=== PATIENT | male | born 1960 | race Caucasian/White ===

== ENCOUNTER → 2016-10-15 | Outpatient (CLI) | payer OTHER ==
--- NOTE | 2016-10-16 08:46 | ECHOF ---
Referral Reason:R06.02 Dyspnea MEASUREMENTS -------- HEIGHT: 172.7 cm WEIGHT: 81.2 kg BP: 136/81 RVIDd: 2.8 cm (< 3.3) IVSd: 0.9 cm (0.6 - 1.1) LVIDd: 5.0 cm (3.9 - 5.3) LVPWd: 0.9 cm (0.6 - 1.1) IVSs: 1.2 cm LVIDs: 3.8 cm LVPWs: 1.2 cm LAESV Index (A-L): 7.30 ml/m Ao Diam: 3.2 cm (2.0 - 3.7) AV Cusp: 1.9 cm (1.5 - 2.6) LA Diam: 3.4 cm (2.7 - 3.8) MV EXCURSION: 13.362 mm (> 18.000) MV EF SLOPE: 55 mm/s (70 - 150) EPSS: 0.4 cm MV E Teddy: 0.64 m/s MV DecT: 347 ms MV A Teddy: 0.93 m/s MV E/A Ratio: 0.68 RAP: 5.00 mmHg RVSP: 23.95 mmHg FINDINGS -------- Sinus rhythm. This was a technically adequate study. The left ventricular size is normal. Left ventricular wall thickness is normal. Overall left ventricular systolic function is normal with, an EF between 55 - 60 %. The right ventricle is normal in size and function. Normal LA size by volume 22+/-6 ml/m2. The right atrium is normal in size. Aortic valve is trileaflet and is mildly thickened. There is no evidence of aortic regurgitation. There is no evidence of aortic stenosis. The mitral valve leaflets are mildly thickened. There is trace mitral regurgitation. Trace tricuspid regurgitation present. Right ventricular systolic pressure is normal at < 35 mmHg. There is no evidence of pulmonary hypertension. The pulmonic valve was not well visualized. The aortic root size is normal. Normal inferior vena cava with normal inspiratory collapse consistent with estimated right atrial pressure of 5 mmHg. The pericardium is normal. There is no pericardial effusion. CONCLUSIONS -------- 1. Sinus rhythm. 2. Right ventricular systolic pressure is normal at < 35 mmHg. 3. There is no evidence of pulmonary hypertension. 4. The pulmonic valve was not well visualized. 5. The aortic root size is normal. 6. There is no pericardial effusion. 7. This was a technically adequate study. 8. The left ventricular size is normal. 9. Overall left ventricular systolic function is normal with, an EF between 55 - 60 %. 10. Normal LA size by volume 22+/-6 ml/m2. 11. Aortic valve is trileaflet and is mildly thickened. 12. The mitral valve leaflets are mildly thickened. 13. There is trace mitral regurgitation. 14. Trace tricuspid regurgitation present. FLARE MAN: Abdon Lenz RDCS
== END | disposition home or self-care (01) ==
LOC: RADECHMAIN 15:23
PROVIDERS: ATTEND Family Medicine
DX: I08.3 Combined rheumatic disorders of mitral, aortic and tricuspid valves (principal)
CPT/HCPCS: 93306

== ENCOUNTER → 2016-10-31 | Outpatient (CLI) | payer OTHER ==
--- NOTE | 2016-10-31 07:59 | CT ---
EXAMINATION TYPE: CT chest w con DATE OF EXAM: 10/31/2016 COMPARISON: NONE HISTORY: SOB CT DLP: 650 mGycm Automated exposure control for dose reduction was used. CONTRAST: CT scan of the chest is performed with IV Contrast, patient injected with 100 mL of Omnipaque 300. FINDINGS: LUNGS: Subsegmental consolidation at both lung bases. Correlate for atelectasis or infiltrate. Vague groundglass densities involving the right apex likely postinflammatory. No pleural effusion. No pneum othorax. Reduced inspiration present. No sizable pulmonary nodule. MEDIASTINUM: There are no greater than 1 cm hilar or mediastinal lymph nodes. No pericardial effusi on is seen. OTHER: Accessory spleen noted. There is a bovine configuration of the aortic arch. IMPRESSION: 1. Subsegmental basilar consolidation. There appears to be elevation of the hemidiaphragms and reduce d inspiration, therefore, atelectasis favored over pneumonia but correlate clinically to exclude pneu monia.
== END ==
LOC: RADCTMAIN 06:59
PROVIDERS: ATTEND Internal Medicine Critical Care Medicine
DX: J18.1 Lobar pneumonia, unspecified organism (principal)
CPT/HCPCS: 71260; Q9967

== ENCOUNTER 2016-11-13 09:20 | Day surgery (SDC) | payer OTHER ==
[2016-11-11 14:17] VITALS: BMI 27.3
[~2016-11-13 09:20] MED LIST: ALBUTEROL NEB (CONC) 2.5 MG/0.5 ML INHALATION ONE; ATROPINE SULFATE 0.4 MG/ML 1 ML VIAL IM ONE; LACTATED RINGERS 1,000 ML IV ONE; LACTATED RINGERS 1,000 ML IV SCH; LIDOCAINE 2% (PF) 20 MG/ML 10ML INHALATION ONE; Pre Op ABX Message 1 EACH MISC MISCELLANE ONE
[2016-11-13 09:38] VITALS: TEMP 98.4
[2016-11-13] MEDS ORDERED: GLYCOPYRROLATE 0.2 MG/ML 2 ML VIAL ONE (10:49)
[2016-11-13] MEDS ORDERED: KETAMINE 10 MG/ML 20 ML VIAL ONE (10:49)
[2016-11-13] MEDS ORDERED: PROPOFOL 10 MG/ML 20 ML VIAL IV ONE (10:49)
[2016-11-13] MEDS ORDERED: LIDOCAINE 2% INJ 20 MG/ML INTRATRACH ONE (11:12)
--- NOTE | 2016-11-13 11:34 | FL ---
EXAMINATION TYPE: FL bronchoscopy DATE OF EXAM: 11/13/2016 COMPARISON: NONE HISTORY: Bronchoscopy Fluoroscopy support supplied to the referring clinician. See dictated report from pulmonary, 1 minut e 18 seconds fluoroscopy time supplied, intraoperative C-arm image documents the procedure
[2016-11-13 11:55] VITALS: RESP 20
--- NOTE | 2016-11-13 12:10 | XR ---
EXAMINATION TYPE: XR chest 1V portable DATE OF EXAM: 11/13/2016 COMPARISON: 10/27/2016 HISTORY: Post bronchoscopy. TECHNIQUE: Single frontal view of the chest is obtained. FINDINGS: Left basilar opacity obscures the left costophrenic angle and left hemidiaphragm. Subsegme ntal linear platelike right basilar atelectasis is seen. No postprocedural pneumothorax is identified . Cardia mediastinal silhouette is partially visualized but appears nonenlarged. Osseous structures a ppear intact. IMPRESSION: 1. No evidence of postprocedural pneumothorax. 2. Left basilar opacity favored to represent a small left pleural effusion and subsegmental atelectas is but could represent developing pneumonia or postbiopsy hemorrhage. 3. Subsegmental linear right basilar atelectasis.
[2016-11-13 12:37] VITALS: BP 128/78; PULSE 80
--- NOTE | 2016-11-13 13:23 | PCN ---
PROCEDURE NOTE PROCEDURE: Bronchoscopy, airway examination, therapeutic lavage, BAL, brushes and biopsies to transbronchial left lower lobe. PREOP DIAGNOSIS: Rule out bronchiolitis obliterans organizing pneumonia. POSTOP DIAGNOSIS: Rule out bronchiolitis obliterans organizing pneumonia. PROCEDURE: [employer] provided unconscious and general anesthesia. There was informed consent and universal timeout. The operators were Dr. Davey and Dr. Elliott. The patient's procedure took place in room #1. After the patient was adequately sedated and being fully monitored. The bronchoscope was inserted through the right nostril. It passed through the right nasopharynx into the oropharynx. The hypopharynx was identified and topicalized. The hypopharyngeal structures including anterior commissure, true cords, false cords, arytenoids, piriform sinuses, right and left vallecula all appeared normal. After topicalization, the bronchoscope was pushed through the glottic opening into the trachea. Trachea was normal. Trachea paula was sharp. Right and left mainstem were topicalized. The right upper lobe and its 3 cm segments, right middle lobe and its 2 segments, right lower lobe and its 5 segments, the left upper lobe proper in its 2 segments, the lingula and its 2 segments and left lower lobe and its 4 segment all appeared relatively normal. There may be some very mild bronchitis. Anyway, then the bronchoscope was positioned into the left lower lobe. Under fluoroscopic guidance, we did brush just to the left lower lobe. Next, we did about 8 to 9 transbronchial biopsies in the left lower lobe. Finally, we did a BAL in the lingula. The patient tolerated the procedure well. There was minimal bleeding. We scanned for pneumothorax after the procedure. There was none. A formal chest x-ray was ordered. There was no immediate complication. The patient tolerated the procedure well. Vital signs were stable throughout the procedure. MMODL / IJN: [id number] /
[2016-11-13 15:00] LABS: RBC, Body Fluid 205500 /uL
== END 2016-11-13 12:38 | disposition home or self-care (01) ==
LOC: ORWHC2ENDO 09:20
PROVIDERS: ATTEND Internal Medicine Critical Care Medicine
DX: J40 Bronchitis, not specified as acute or chronic (principal); R06.02 Shortness of breath; I10 Essential (primary) hypertension; E78.00 Pure hypercholesterolemia, unspecified; Z82.49 Family history of ischemic heart disease and other diseases of the circulatory system; Z79.51 Long term (current) use of inhaled steroids; Z79.52 Long term (current) use of systemic steroids; Z79.899 Other long term (current) drug therapy; Z88.0 Allergy status to penicillin
CPT/HCPCS: 94640; 87798 ×4; 87496; 87498; 87529 ×2; 88104; 88108; 88305; 89050; 87252; 87502 ×2; 87070; 87205; 87116; 87102; 87206; 71010; 31628; 31623; 31624; J2001 ×2; J2704

== ENCOUNTER → 2017-04-20 | Outpatient (CLI) | payer BC ==
[2017-04-20 08:59] LABS: Basophils # (A) 0.1 k/uL (0-0.2); Basophils % (A) 1 %; Eosinophils # (A) 0.1 k/uL (0-0.7); Eosinophils % (A) 1 %; HCT 47.1 % (39.0-53.0); HGB 15.6 gm/dL (13.0-17.5); Lymphocytes # (A) 2.8 k/uL (1.0-4.8); Lymphocytes % (A) 26 %; MCH 29.9 pg (25.0-35.0); MCHC 33.2 g/dL (31.0-37.0); MCV 90.2 fL (80.0-100.0); Mean Platelet Volume 7.6; Monocytes # (A) 0.8 k/uL (0-1.0); Monocytes % (A) 8 %; Neutrophils # (A) 6.4 k/uL (1.3-7.7); Neutrophils % (A) 61 %; Platelet Count 228 k/uL (150-450); RBC 5.22 m/uL (4.30-5.90); RDW 13.6 % (11.5-15.5); WBC 10.5 k/uL (3.8-10.6)
[2017-04-20 09:14] LABS: Anion Gap 10 mmol/L; Blood Urea Nitrogen 22 mg/dL (9-20); Carbon Dioxide 33 mmol/L (22-30); Chloride 97 mmol/L (98-107); INR 1.1 (<1.2); Prothrombin Time 10.3 sec (9.0-12.0); Sodium 140 mmol/L (137-145)
[2017-04-20 09:30] LABS: Partial Thromboplastin Time 20.9 sec (22.0-30.0)
[2017-04-20 09:36] LABS: Appearance,Urine Clear (Clear); Bilirubin,Urine Negative (Negative); Blood,Urine Negative (Negative); Color,Urine Yellow; Glucose,Urine (UA) Negative (Negative); Ketones,Urine Negative (Negative); Leukocyte Esterase,Urine Negative (Negative); Nitrite,Urine Negative (Negative); PH, Urine 5.5 (5.0-8.0); Protein,Urine Negative (Negative); Specific Gravity,Urine 1.017 (1.001-1.035); Urobilinogen,Urine <2.0 mg/dL (<2.0)
== END | disposition home or self-care (01) ==
LOC: LABPAT 08:06
PROVIDERS: ATTEND Surgery
DX: Z01.812 Encounter for preprocedural laboratory examination (principal); R91.8 Other nonspecific abnormal finding of lung field
CPT/HCPCS: 36415; 80051; 81003; 82565; 84520; 85025; 85610; 85730

== ENCOUNTER → 2017-04-20 | Outpatient (CLI) | payer BC | END | disposition home or self-care (01) | LOC: RADCTMAIN 07:36 | PROVIDERS: ATTEND Thoracic Surgery (Cardiothoracic Vascular Surgery) | DX: Z53.9 Procedure and treatment not carried out, unspecified reason (principal) ==

== ENCOUNTER 2017-04-23 06:08 | Inpatient (IN) | payer BC ==
[~2017-04-23 06:08] MED LIST changes: -ALBUTEROL NEB (CONC) 2.5 MG/0.5 ML INHALATION ONE; -ATROPINE SULFATE 0.4 MG/ML 1 ML VIAL IM ONE; +DEXAMETHASONE SOD PHOSPHATE 10 MG/ML 1 ML VIAL IV ONE; -LACTATED RINGERS 1,000 ML IV ONE; -LACTATED RINGERS 1,000 ML IV SCH; -LIDOCAINE 2% (PF) 20 MG/ML 10ML INHALATION ONE; +MORPHINE SULFATE 4 MG/ML SYRINGE IV PRN
[2017-04-23] MEDS: LACTATED RINGERS 1,000 ML IV SCH ×2 (06:52→07:41)
[2017-04-23 06:54] LABS: Glucose,Whole Blood 102 mg/dL (75-99)
[2017-04-23] MEDS: ONDANSETRON 4 MG/2 ML VIAL IVP ONE ×2 (06:59→09:44)
[2017-04-23] MEDS ORDERED: VANCOMYCIN 1,000 MG in SODIUM CHLORIDE 0.9% 250 ML IVPB STA (07:40)
[2017-04-23] MEDS ORDERED: PROPOFOL 10 MG/ML 20 ML VIAL IV ONE (07:45)
[2017-04-23] MEDS ORDERED: ROCURONIUM BROMIDE 10 MG/ML 10 ML VIAL IV ONE (07:45)
[2017-04-23] MEDS ORDERED: fentaNYL (PF) 50 MCG/ML 2 ML AMP ONE (07:45)
[2017-04-23] MEDS ORDERED: SUCCINYLCHOLINE CHLORIDE VIAL 200 MG/10 ML VIAL IV ONE (07:45)
[2017-04-23] MEDS ORDERED: NEOSTIGMINE 1 MG/ML 10 ML VIAL ONE (07:45)
[2017-04-23] MEDS ORDERED: GLYCOPYRROLATE 0.2 MG/ML 2 ML VIAL ONE (07:45)
[2017-04-23] MEDS ORDERED: PHENYLEPHRINE-0.9% NACL SYG 1 MG/10 ML SYRINGE ONE (07:45)
[2017-04-23] MEDS ORDERED: MIDAZOLAM 2 MG/2 ML VIAL ONE (07:45)
[2017-04-23] MEDS ORDERED: BUPIVACAINE (PF) 0.5% 30 ML VIAL SQ ONE ×2 (08:41)
[2017-04-23] MEDS ORDERED: MORPHINE SULFATE 4 MG/ML SYRINGE IVP ONE ×3 (10:03→11:36)
[2017-04-23] MEDS ORDERED: IPRATROPIUM-ALBUTEROL 3 ML NEB IH PRN (10:07)
[2017-04-23] MEDS ORDERED: ONDANSETRON 4 MG/2 ML VIAL IVP PRN (10:07)
[2017-04-23] MEDS ORDERED: BISACODYL 10 MG SUPP RECTAL PRN (10:07)
--- NOTE | 2017-04-23 10:19 | XR ---
EXAMINATION TYPE: XR chest 1V portable DATE OF EXAM: 04/23/2017 Comparison: 11/13/2016 Clinical History: 57-year-old male POST OP CHEST TUBE Findings: Very low lung volumes with crowded vascular markings and bibasilar densities. The elevated hemidiaphr agms obscure the heart margins. Heart may be enlarged. Diffuse interstitial prominence could represen t crowded vasculature. Difficult to exclude underlying effusions or consolidation at the lung bases. Apically directed left-sided chest tube is new. No appreciable pneumothorax. Impression: 1. New left-sided chest tube. No appreciable pneumothorax. 2. Severe hypoventilatory changes limiting evaluation. There could be underlying cardiomegaly, effusi ons, and basilar consolidation. Follow-up with better inspiration recommended.
[2017-04-23] MEDS: KETOROLAC 30 MG/ML 1 ML VIAL IVP SCH ×2 (10:32→17:14)
[2017-04-23] MEDS: DEXTROSE 5%-0.45% NACL 1,000 ML IV SCH (11:44)
--- NOTE | 2017-04-23 12:00 | OP ---
OPERATIVE REPORT DATE OF SURGERY: 04/23/2017 PREOPERATIVE DIAGNOSIS: Interstitial lung disease. POSTOPERATIVE DIAGNOSIS: Interstitial lung disease. PROCEDURE: Left upper lobe and left lower lobe VATS lung biopsy. SURGEON: Paul Rodriguez MD. SINGLE RESOURCE BOSS: SEBASTIAN Cortes. ANESTHESIA: General. SPECIMENS: 1. Left upper lobe wedge. 2. Left lower lobe wedge. ESTIMATED BLOOD LOSS: Minimal. COMPLICATIONS: None. INDICATION: The patient is a 57-year-old male who has been followed by Dr. Elliott for several months now secondary to shortness of breath. He has been treated both with antibiotics and steroids without response. Transbronchial biopsy was performed and revealed peribronchial inflammation. The patient remains significantly short of breath. It is difficult for him to lay flat. Now there is a question of bronchiolitis obliterans with organizing pneumonia. A thoracoscopic lung biopsy was therefore requested to confirm the diagnosis of BOOP or possibly establish a different diagnosis. The risks, benefits, and alternatives to this procedure including, but not limited to the risk of prolonged intubation and air leak were discussed with the patient. All his questions were answered. Consent was obtained. FINDINGS: Grossly, the lung appeared normal. There was no studding on the chest wall. There were no obvious masses or nodules within the lung parenchyma. There was no necrotic or cavitary lesions. PROCEDURE IN DETAIL: The patient was taken to the operating room and placed supine on the operating room table. A double-lumen endotracheal tube was placed by the anesthesia service. Its position was confirmed using a bronchoscope. The patient was then placed in the right lateral decubitus position with the left side up. Care was taken to pad all pressure points. The left chest and flank were then prepped and draped in the usual sterile fashion. With the left lung deflated, a small incision was made at the anterior axillary line at approximately the 7th intercostal space. Of note, the patient was able to ventilate and saturate well on one lung. Dissection was carried down through the soft tissue and the left pleural space was entered bluntly. The thoracoscope was introduced. Two additional ports were then placed under direct vision. Initial exploration revealed no obvious nodules or masses. There were no cavitary lesions or areas concerning for consolidation. The chest wall itself was free from masses or studding. There was no significant pleural effusion. A portion of the left upper lobe was wedged out using a stapling device. The staple line appeared to be intact after completion of this procedure. A second wedge was taken from the left lower lobe in a similar fashion using a stapling device. Again the staple line appeared to be intact without evidence of air leak. A straight 32-Indian chest tube was placed and directed toward the apex. The lung was then inflated under direct vision and appeared to fill the space nicely. Again, there was no obvious air leak. The chest tube was secured to the skin. The 3 incisions were then closed in layers. Sterile dressings were applied. The patient appeared to have tolerated the procedure well. He was extubated on the completion of the case and returned to the recovery room in stable condition. MMODL / IJN: [id number] / MTDD
[2017-04-23] MEDS: IPRATROPIUM-ALBUTEROL 3 ML NEB IH SCH ×3 (12:51→20:21)
[2017-04-23] MEDS ORDERED: predniSONE 20 MG TAB PO SCH (13:00)
[2017-04-23] MEDS: LISINOPRIL-HCTZ 20-25 MG 1 EACH TAB PO SCH (13:07)
[2017-04-23] MEDS: traMADol 50 MG TAB PO SCH ×3 (13:09→21:02)
[2017-04-23] MEDS: ATORVASTATIN 10 MG TAB PO SCH (13:09)
[2017-04-23] MEDS: predniSONE 10 MG TAB PO SCH (13:55)
[2017-04-23] MEDS: MORPHINE SULFATE 4 MG/ML SYRINGE IV PRN ×3 (15:04→22:39)
--- NOTE | 2017-04-23 15:04 | P.CNPUL ---
History of Present Illness Consult date: 04/23/17 Requesting physician: Paul Rodriguez Reason for consult: other (Status post VATS lung biopsy) Chief complaint: Shortness of breath History of present illness: This is a 57-year-old white male with history of chronic shortness of breath going back to October of 2016. His shortness of breath developed around the time he developed a strep throat, admitted to the hospital in [place], treated with antibiotics and diuretics, and eventually he was discharged home diagnosed according to him with streptococcal sepsis. Patient did not require any intubation or mechanical ventilation, but apparently he was quite ill at the time because of his strep throat infection. Since then the patient developed extreme shortness of breath, and has been doctoring with Dr. Elliott since 2016. Workup was done by Dr. Rajinder Elliott, revealed evidence of restrictive lung disease, and his FVC is in the range of 30%. Patient did not require any oxygen , he underwent a bronchoscopy and transbronchial biopsy which I reviewed and clearly was nondiagnostic. Apparently Dr. Elliott had a verbal report from the pathologist at the [facility] questioning a bronchiolitis obliterans with organizing pneumonia. Patient was tried on prednisone, but no relief whatsoever. Tried on bronchodilators again no relief. In spite of his shortness of breath, the patient did not require to be on home oxygen. His CT of the chest showed nonspecific findings hence the patient was advised to undergo thoracoscopic lung biopsy which was done today. Grossly his specimen was normal according to the surgeon, final pathology report is pending. Patient was transferred to a monitor bed on selective after his surgery today, and I was asked to see him on consultation. After reviewing the clinical history and reviewing his x-rays, CT of the chest, previous bronchoscopic findings, PFT, I felt strongly that this is more of a restrictive pathology most likely related to muscle weakness. Patient may eventually need workup for muscle weakness evaluation including a sniff test, and other blood testing looking into possibility of muscle weakness causing his symptoms of shortness of breath. Patient cannot lay flat, he cannot lay on the left side, and x-rays in the past have shown the left hemidiaphragm to be dismissed to be all was higher than the right hemidiaphragm. X-rays have also shown atelectatic changes at the bases bilaterally, and the chest x-ray this morning after his surgery is showing significant hypoventilatory status with atelectasis in the right lower lobe and left lower lobe. Hence I recommended an ABG, and I will give the patient a trial of BiPAP. Review of Systems 14 point review of systems were obtained, please refer to pertinent positives and negatives in HPI, patient denies any cough, no wheezing, he has shortness of breath which is relatively chronic, denies any headaches, no blurred vision, no diplopia, no neck pain, no cervical pathology, denies any nausea vomiting abdominal pain, no melena, no hematemesis, no symptoms of arthritis, no dysuria and no frequency no urgency. Past Medical History Past Medical History: Hyperlipidemia, Hypertension Additional Past Medical History / Comment(s): IN September,, WAS IN TH "UP" AT HIS CABIN AND GOT SICK WITH STREP THROAT AND HIGH FEVER (103), BECAME SEPTIC , THEN LUNG PROBLEMS. VERY SOB, CAN NOT LIE FLAT OR WALK VERY FAR. History of Any Multi-Drug Resistant Organisms: None Reported Past Surgical History: No Surgical Hx Reported Additional Past Surgical History / Comment(s): BRONCHOSCOPY, colonoscopy Past Anesthesia/Blood Transfusion Reactions: No Reported Reaction Additional Past Anesthesia/Blood Transfusion Reaction / Comment(s): HAS NEVER HAD GENERAL ANESTHESIA. Past Psychological History: No Psychological Hx Reported Smoking Status: Light tobacco smoker Past Alcohol Use History: Occasional Additional Past Alcohol Use History / Comment(s): chews tobacco- daily Past Drug Use History: None Reported - Past Family History Mother Family Medical History: No Reported History Medications and Allergies Home Medications Medication Instructions Recorded Confirmed Type Lisinopril-Hctz 20-25 mg 1 tab PO QAM 11/11/16 04/23/17 History [Zestoretic 20-25] Simvastatin [Zocor] 20 mg PO QAM 11/11/16 04/23/17 History Albuterol Inhaler [Ventolin Hfa 1 puff INHALATION RT-Q6H PRN 04/17/17 04/23/17 History Inhaler] Naproxen Sod/Diphenhydramine 1 tab PO HS 04/17/17 04/23/17 History [Aleve Pm Caplet] predniSONE 20 mg PO DAILY 04/17/17 04/23/17 History Allergies Allergy/AdvReac Type Severity Reaction Status Date / Time banana Allergy Rash/Hives Verified 04/23/17 11:12 Penicillins Allergy Swelling Verified 04/23/17 11:12 Physical Exam Vitals: Vital Signs Temp Pulse Resp BP Pulse Ox 04/23/17 12:00 97 F L 101 H 18 136/78 91 L 04/23/17 11:31 99 16 129/79 93 L 04/23/17 11:00 97 16 138/83 93 L 04/23/17 10:46 93 16 127/82 93 L 04/23/17 10:32 88 16 119/75 92 L 04/23/17 10:16 85 16 118/68 93 L 04/23/17 10:01 84 16 112/69 93 L 04/23/17 09:45 82 20 137/80 91 L 04/23/17 09:30 80 20 145/97 89 L 04/23/17 09:23 97.9 F 89 18 149/91 92 L 04/23/17 06:29 98.5 F 93 24 141/89 91 L Intake and Output 04/22/17 04/23/17 04/23/17 22:59 06:59 14:59 Intake Total 950 Output Total 605 Balance 345 Intake: IV 950 Output: Urine 600 Estimated Blood Loss 5 Physical Exam: Revealed a 57-year-old in no distress, however the patient is noted to lay propped up in bed, cannot lay flat, and cannot lay on the left side. Head: Cushingoid, atraumatic, normocephalic. HEENT:[Neck is supple.] [No neck masses.] [No thyromegaly.] [No JVD.] Chest: [Extremely diminished breath sounds at the bases, no crackles or rhonchi or wheezes left-sided chest tube was noted..] Cardiac Exam: [Normal S1 and S2, no S3 gallop, no murmur.] Abdomen: [Soft, nontender, no megaly, no rebound, no guarding, normal bowel sounds.] Extremities: [No clubbing, no edema, no cyanosis.] Neurological Exam: [No focal neurologic deficit.] Psychiatric: Normal mood affect and mental status examination. Lymphatics: No lymphadenopathy Results - Laboratory Findings Abnormal lab findings: Abnormal Labs 04/23/17 06:46 POC Glucose (mg/dL) 102 H Assessment and Plan Assessment: Impression: 1 Status post thoracoscopic lung biopsy/VATS, postoperative day #0. 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 Otherwise the patient would have responded well to prednisone. 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 Will eventually need workup including sniff test, acetyl choline receptor's antibody. Even consider neurological evaluation.. Recommendation: Continue present postoperative supportive care measures, patient will have an ABG done to assess for hypoventilation and hypercapnia, will recommend a trial of BiPAP, chest x-ray is concerning since the patient is developing worsening atelectasis at the bases of both lungs. We' ll continue to follow patient will be resumed on his usual meds which were given to him previously by Dr. Elliott. Encourage incentive spirometry and updrafts. Time with Patient: Greater than 30
[2017-04-23] MEDS: HEPARIN SODIUM,PORCINE 5,000 UNIT/ML 1 ML VIAL SQ SCH (15:20)
[2017-04-23] MEDS: CLINDAMYCIN 900 MG in DEXTROSE 5% IN WATER 50 ML IVPB SCH ×2 (15:20)
[2017-04-23 15:27] LABS: ABG Base Excess 5.7 mmol/L; ABG HCO3 32 mmol/L (21-25); ABG Oxygen Saturation 92.3 % (94-97); ABG PCO2 64 mmHg (35-45); ABG PH 7.31 (7.35-7.45); ABG PO2 68 mmHg (83-108); ABG TCO2 34 mmol/L (19-24)
[2017-04-24] MEDS: CLINDAMYCIN 900 MG in DEXTROSE 5% IN WATER 50 ML IVPB SCH ×2 (00:06)
[2017-04-24] MEDS: KETOROLAC 30 MG/ML 1 ML VIAL IVP SCH ×5 (00:06→23:18)
[2017-04-24] MEDS: HEPARIN SODIUM,PORCINE 5,000 UNIT/ML 1 ML VIAL SQ SCH ×4 (00:09→23:15)
[2017-04-24 06:30] LABS: Basophils # (A) 0.1 k/uL (0-0.2); Basophils % (A) 1 %; Eosinophils # (A) 0.2 k/uL (0-0.7); Eosinophils % (A) 1 %; HCT 44.2 % (39.0-53.0); HGB 14.7 gm/dL (13.0-17.5); Lymphocytes # (A) 1.5 k/uL (1.0-4.8); Lymphocytes % (A) 12 %; MCH 30.2 pg (25.0-35.0); MCHC 33.3 g/dL (31.0-37.0); MCV 90.7 fL (80.0-100.0); Mean Platelet Volume 7.4; Monocytes # (A) 1.1 k/uL (0-1.0); Monocytes % (A) 9 %; Neutrophils # (A) 8.9 k/uL (1.3-7.7); Neutrophils % (A) 74 %; Platelet Count 207 k/uL (150-450); RBC 4.87 m/uL (4.30-5.90); RDW 13.3 % (11.5-15.5); WBC 12.1 k/uL (3.8-10.6)
[2017-04-24 06:44] LABS: Anion Gap 7 mmol/L; Blood Urea Nitrogen 19 mg/dL (9-20); Calcium 9.1 mg/dL (8.4-10.2); Carbon Dioxide 35 mmol/L (22-30); Chloride 92 mmol/L (98-107); Creatine Kinase 209 U/L (55-170); Glucose 120 mg/dL (74-99); Potassium 5.6 mmol/L (3.5-5.1); Sodium 134 mmol/L (137-145)
[2017-04-24 07:02] LABS: C Reactive Protein 50.8 mg/L (<10.0)
[2017-04-24] MEDS: MORPHINE SULFATE 4 MG/ML SYRINGE IV PRN (07:06)
--- NOTE | 2017-04-24 08:10 | XR ---
EXAMINATION TYPE: XR chest 1V DATE OF EXAM: 04/24/2017 COMPARISON: 04/23/2017 HISTORY: Postop lung biopsy. Follow-up exam. TECHNIQUE: Single frontal view of the chest is obtained. FINDINGS: Left thoracostomy tube has been slightly retracted in the interim. No residual pneumothora x is identified. There are low lung volumes accentuating the pulmonary vasculature. Haziness of the r ight hemidiaphragm likely relates to subsegmental atelectasis or a trace pleural effusion. Cardiomedi astinal silhouette is relatively enlarged due to low lung volumes. Osseous structures are grossly int act with acromioclavicular arthropathy. IMPRESSION: 1. Hypoventilatory lungs limiting evaluation, however there is a stable trace right pleural effusion or atelectasis partially obscuring the right hemidiaphragm. 2. Interval retraction of the left thoracostomy tube, appropriately placed with no residual pneumotho rax.
[2017-04-24] MEDS: IPRATROPIUM-ALBUTEROL 3 ML NEB IH SCH ×4 (08:26→20:12)
[2017-04-24] MEDS: ATORVASTATIN 10 MG TAB PO SCH (08:44)
[2017-04-24] MEDS: LISINOPRIL-HCTZ 20-25 MG 1 EACH TAB PO SCH (08:45)
[2017-04-24] MEDS: predniSONE 10 MG TAB PO SCH (08:45)
[2017-04-24] MEDS: traMADol 50 MG TAB PO SCH ×4 (08:45→20:56)
[2017-04-24] MEDS ORDERED: SODIUM POLYSTYRENE SULFONATE 15 GM/60 ML BOTTLE PO STA (10:42)
--- NOTE | 2017-04-24 11:13 | P.PN ---
Subjective Progress Note Date: 04/24/17 Principal diagnosis: Interstitial lung disease. Previous medical history of hypertension, sepsis with Streptococcus. POD #1 left upper lobe and left lower lobe video-assisted thoracoscopic lung biopsy. Patient currently sitting up in bed in no acute distress. States his pain is well-controlled, is slightly short of breath but no more than normal. Objective - Vital Signs Vital signs: Vital Signs Temp 97.3 F L 04/24/17 08:00 Pulse 86 04/24/17 08:39 Resp 18 04/24/17 08:00 BP 145/87 04/24/17 08:00 Pulse Ox 94 L 04/24/17 08:30 Intake & Output 04/23/17 04/24/17 04/24/17 18:59 06:59 18:59 Intake Total 1550 900 Output Total 605 390 280 Balance 945 -390 620 Weight 97.5 kg Intake: IV 950 Intake, IV Titration 240 Amount Dextrose 5%-0.45% NaCl 1, 240 000 ml @ 40 mls/hr IV . Q24H [facility] Rx#:[id number] Oral 360 900 Output: Chest Tube Drainage 70 Chest Tube Left Lateral 70 Chest Drainage 20 Left Chest 20 Urine 600 300 280 Emesis 0 Estimated Blood Loss 5 Other: Voiding Method Toilet Urinal # Voids 2 2 # Bowel Movements 0 # Emeses 0 - Constitutional General appearance: Present: cooperative, no acute distress, obese - Respiratory Details: Lungs sounds diminished with fine crackles in the bases. Respirations even, nonlabored. Currently on 3 L nasal cannula with oxygen saturation 94%. Only able to achieve 500 mL on his incentive spirometry. Left pleural chest tube to continuous wall suction, 50 mL thin serous and was drainage overnight, 95 mL since surgery. No air leak present. - Cardiovascular Details: S1, S2 present. Regular rate and rhythm, sinus rhythm on telemetry. Palpable peripheral pulses bilaterally. No edema present. No calf pain or tenderness noted. SCDs present. - Gastrointestinal Gastrointestinal Comment(s): Abdomen soft, nontender, nondistended. Active bowel sounds 4 quadrants. Tolerating diet. - Genitourinary Genitourinary Comment(s): Mckeon discontinued yesterday. Continues to void clear, yellow urine per urinal. - Integumentary Integumentary Comment(s): Skin is warm and dry with evidence of good perfusion. - Neurologic Neurologic: Present: CNII-XII intact - Musculoskeletal Musculoskeletal: Present: gait normal, strength equal bilaterally - Psychiatric Psychiatric: Present: A&O x's 3, appropriate affect, intact judgment & insight - Allied health notes Allied health notes reviewed: nursing - Labs CBC & Chem 7: 04/24/17 05:52 04/24/17 05:52 Labs: Abnormal Lab Results - Last 24 Hours (Table) 04/23/17 04/24/17 04/24/17 Range/Units 15:24 05:52 05:52 WBC 12.1 H (3.8-10.6) k/uL Neutrophils # 8.9 H (1.3-7.7) k/uL Monocytes # 1.1 H (0-1.0) k/uL ABG pH 7.31 L (7.35-7.45) ABG pCO2 64 H (35-45) mmHg ABG pO2 68 L (83-108) mmHg ABG HCO3 32 H (21-25) mmol/L ABG Total CO2 34 H (19-24) mmol/L ABG O2 Saturation 92.3 L (94-97) % Sodium 134 L (137-145) mmol/L Potassium 5.6 H (3.5-5.1) mmol/L Chloride 92 L (98-107) mmol/L Carbon Dioxide 35 H (22-30) mmol/L Glucose 120 H (74-99) mg/dL Creatine Kinase 209 H (55-170) U/L C-Reactive Protein 50.8 H (<10.0) mg/L Microbiology - Last 24 Hours (Table) 04/23/17 08:54 Gram Stain - Preliminary Lung - Left Lower Lobe Tissue Culture - Preliminary 04/23/17 08:54 Gram Stain - Preliminary Lung - Left Upper Lobe Tissue Culture - Preliminary 04/23/17 08:54 Acid Fast Bacilli Smear - Final Lung - Left Lower Lobe Acid Fast Bacilli Culture - Preliminary 04/23/17 08:54 Acid Fast Bacilli Smear - Final Lung - Left Upper Lobe Acid Fast Bacilli Culture - Preliminary 04/23/17 08:54 Fungal Culture - Preliminary Lung - Left Lower Lobe 04/23/17 08:54 Fungal Culture - Preliminary Lung - Left Upper Lobe 04/23/17 08:54 Anaerobic Culture - Preliminary Lung - Left Lower Lobe 04/23/17 08:54 Anaerobic Culture - Preliminary Lung - Left Upper Lobe - Imaging and Cardiology Chest x-ray: report reviewed, image reviewed Assessment and Plan (1) Interstitial lung disease Current Visit: Yes Status: Chronic Code(s): J84.9 - INTERSTITIAL PULMONARY DISEASE, UNSPECIFIED SNOMED Code(s): 803588012 (2) Hypertension Current Visit: Yes Status: Chronic Code(s): I10 - ESSENTIAL (PRIMARY) HYPERTENSION SNOMED Code(s): 03233471 Plan: 1. Chest tube placed to waterseal. We'll continue to monitor for air leak, drainage amount. 2. Wean O2 as tolerated. Encourage incentive spirometry 10 times every hour. 3. Pain management with ordered medications. 4. Increase activity ambulate as tolerated. 5. Will monitor daily labs and x-rays. 6. More recommendations to follow. Time with Patient: Greater than 30
[2017-04-24] MEDS: DEXTROSE 5%-0.45% NACL 1,000 ML IV SCH (12:31)
--- NOTE | 2017-04-24 12:33 | P.PN ---
Subjective Progress Note Date: 04/24/17 Principal diagnosis: Status post VATS lung biopsy, postoperative day #1 This is a 57-year-old white male with history of chronic shortness of breath going back to October of 2016. His shortness of breath developed around the time he developed a strep throat, admitted to the hospital in [place], treated with antibiotics and diuretics, and eventually he was discharged home diagnosed according to him with streptococcal sepsis. Patient did not require any intubation or mechanical ventilation, but apparently he was quite ill at the time because of his strep throat infection. Since then the patient developed extreme shortness of breath, and has been doctoring with Dr. Elliott since 2016. Workup was done by Dr. Rajinder Elliott, revealed evidence of restrictive lung disease, and his FVC is in the range of 30%. Patient did not require any oxygen , he underwent a bronchoscopy and transbronchial biopsy which I reviewed and clearly was nondiagnostic. Apparently Dr. 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 Patient was tried on prednisone, but no relief whatsoever. Tried on bronchodilators again no relief. In spite of his shortness of breath, the patient did not require to be on home oxygen. His CT of the chest showed nonspecific findings hence the patient was advised to undergo thoracoscopic lung biopsy which was done today. Grossly his specimen was normal according to the surgeon, final pathology report is pending. Patient was transferred to a monitor bed on selective after his surgery today, and I was asked to see him on consultation. After reviewing the clinical history and reviewing his x-rays, CT of the chest, previous bronchoscopic findings, PFT, I felt strongly that this is more of a restrictive pathology most likely related to muscle weakness. Patient may eventually need workup for muscle weakness evaluation including a sniff test, and other blood testing looking into possibility of muscle weakness causing his symptoms of shortness of breath. Patient cannot lay flat, he cannot lay on the left side, and x-rays in the past have shown the left hemidiaphragm to be dismissed to be all was higher than the right hemidiaphragm. X-rays have also shown atelectatic changes at the bases bilaterally, and the chest x-ray this morning after his surgery is showing significant hypoventilatory status with atelectasis in the right lower lobe and left lower lobe. Hence I recommended an ABG, and I will give the patient a trial of BiPAP. Reevaluated today, patient is doing relatively well, continues to have shortness of breath, felt better when he slept last night with a BiPAP at IPAP of 12 and EPAP 4. His ABG reflected chronic hypoxia and chronic hypercapnia which again points to possible hypoventilation secondary to muscle weakness. Initiated some laboratory diagnostic workup yesterday, results of which are pending. CPK is slightly elevated, felt to be nonsignificant, C-reactive protein is elevated. 15.8. CBC is relatively normal. ABG showed a pO2 of 68 pCO2 of 64 pH of 7.31 and this is on 32% FiO2. Objective - Vital Signs Vital signs: Vital Signs Temp 98.6 F 04/24/17 11:56 Pulse 88 04/24/17 12:02 Resp 18 04/24/17 11:56 BP 135/73 04/24/17 11:56 Pulse Ox 91 L 04/24/17 11:56 Intake & Output 04/23/17 04/24/17 04/24/17 18:59 06:59 18:59 Intake Total 1550 900 Output Total 605 390 280 Balance 945 -390 620 Weight 97.5 kg Intake: IV 950 Intake, IV Titration 240 Amount Dextrose 5%-0.45% NaCl 1, 240 000 ml @ 40 mls/hr IV . Q24H [facility] Rx#:[id number] Oral 360 900 Output: Chest Tube Drainage 70 Chest Tube Left Lateral 70 Chest Drainage 20 Left Chest 20 Urine 600 300 280 Emesis 0 Estimated Blood Loss 5 Other: Voiding Method Toilet Toilet Urinal Bedside Commode # Voids 2 2 # Bowel Movements 0 # Emeses 0 - Exam Physical Exam: Revealed a 57-year-old in no distress, however the patient is noted to lay propped up in bed, cannot lay flat, and cannot lay on the left side. Head: Cushingoid, atraumatic, normocephalic. HEENT:[Neck is supple.] [No neck masses.] [No thyromegaly.] [No JVD.] Chest: [Extremely diminished breath sounds at the bases, no crackles or rhonchi or wheezes left-sided chest tube was noted..] Cardiac Exam: [Normal S1 and S2, no S3 gallop, no murmur.] Abdomen: [Soft, nontender, no megaly, no rebound, no guarding, normal bowel sounds.] Extremities: [No clubbing, no edema, no cyanosis.] Neurological Exam: [No focal neurologic deficit.] Psychiatric: Normal mood affect and mental status examination. Lymphatics: No lymphadenopathy - Labs CBC & Chem 7: 04/24/17 05:52 04/24/17 05:52 Labs: Abnormal Lab Results - Last 24 Hours (Table) 04/23/17 04/24/17 04/24/17 Range/Units 15:24 05:52 05:52 WBC 12.1 H (3.8-10.6) k/uL Neutrophils # 8.9 H (1.3-7.7) k/uL Monocytes # 1.1 H (0-1.0) k/uL ABG pH 7.31 L (7.35-7.45) ABG pCO2 64 H (35-45) mmHg ABG pO2 68 L (83-108) mmHg ABG HCO3 32 H (21-25) mmol/L ABG Total CO2 34 H (19-24) mmol/L ABG O2 Saturation 92.3 L (94-97) % Sodium 134 L (137-145) mmol/L Potassium 5.6 H (3.5-5.1) mmol/L Chloride 92 L (98-107) mmol/L Carbon Dioxide 35 H (22-30) mmol/L Glucose 120 H (74-99) mg/dL Creatine Kinase 209 H (55-170) U/L C-Reactive Protein 50.8 H (<10.0) mg/L Microbiology - Last 24 Hours (Table) 04/23/17 08:54 Gram Stain - Preliminary Lung - Left Lower Lobe Tissue Culture - Preliminary 04/23/17 08:54 Gram Stain - Preliminary Lung - Left Upper Lobe Tissue Culture - Preliminary 04/23/17 08:54 Acid Fast Bacilli Smear - Final Lung - Left Lower Lobe Acid Fast Bacilli Culture - Preliminary 04/23/17 08:54 Acid Fast Bacilli Smear - Final Lung - Left Upper Lobe Acid Fast Bacilli Culture - Preliminary 04/23/17 08:54 Fungal Culture - Preliminary Lung - Left Lower Lobe 04/23/17 08:54 Fungal Culture - Preliminary Lung - Left Upper Lobe 04/23/17 08:54 Anaerobic Culture - Preliminary Lung - Left Lower Lobe 04/23/17 08:54 Anaerobic Culture - Preliminary Lung - Left Upper Lobe Assessment and Plan Assessment: Impression: 1 Status post thoracoscopic lung biopsy/VATS, postoperative day #1 2 chronic shortness of breath, nonspecific CT chest findings, 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 Otherwise the patient would have responded well to prednisone. 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 Will eventually need workup including sniff test, acetyl choline receptor's antibody. Even consider neurological evaluation.. In the meantime continue present supportive care measures, once the chest tube is removed, patient could be discharged home, and he will follow up with Dr. Elliott. May need further diagnostic workup on outpatient basis, but that will be decided upon after the final pathology report on his lung biopsy. Time with Patient: Less than 30
--- NOTE | 2017-04-24 20:58 | CONS ---
CONSULTATION DATE OF SERVICE: 04/24/2017. REASON FOR CONSULTATION: Medical management, requested by Dr. Rodriguez. CONSULTATION: This is a pleasant 57-year-old patient who follows with Dr. Hicks. Chronic stable medical conditions include hypertension and hyperlipidemia. The patient is in otherwise good health. Back in September 2016, went up [facility], to be in a cabin which is over 100 years old, with friends. After the night was over the patient developed a sore throat and over the course of the next 2 to 3 days the sore throat became worse. Patient started feeling unwell, fevers, chills, and patient had to be taken to the local hospital. The patient had otherwise had just indulged in just cutting wood, doing blueberries. Nobody else was sick. There were no insect bites. The patient denied remembering having any skin rash, any diarrhea, any hematuria. Subsequently was patient was admitted to the hospital, given antibiotics, and then was sent home with antibiotics. This was in [facility]. The patient subsequently remained short of breath and he was told that he had strep throat on that admission. He was sent to see Dr. Elliott, who we saw in early October of last year. Dr. Elliott had diagnosed him with BOOP, put him on prednisone. The patient's shortness of breath never really improved. The patient is now admitted today for a VATS procedure for lung biopsy of 2 lobes on the left side. The patient at baseline remains to be short of breath, minimal cough. Had been very healthy up until this acute episode. The patient also did have a bronchoscopy and was reported to have all negative findings. REVIEW OF SYSTEMS: Constitutional: Tired. HEENT none. Respiratory: As above. Cardiovascular: None. Gastrointestinal: None. Genitourinary: None. Musculoskeletal: None. Dermatological: None. Hematologic: None. Lymphatic: None. Psychiatry none. Neurological: None. PAST MEDICAL HISTORY: Hypertension hyperlipidemia. Rest is as above. PAST SURGICAL HISTORY: Colonoscopy. SOCIAL HISTORY: The patient chews tobacco daily. Light cigarette smoker. 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 . FAMILY HISTORY: Reviewed, noncontributory to presentation. HOME MEDICATIONS: 1. Prednisone 20 mg a day. 2. Zocor 20 mg p.o. daily. 3. Aleve 1 tab p.o. daily at bedtime. 4. Zestoretic 20/25, 1 tab p.o. daily. 5. Ventolin HFA 1 puff every 6 hours p.r.n. ALLERGIES: BANANAS, PENICILLIN. PHYSICAL EXAMINATION: Temperature 98.6, pulse 84, respiratory rate 18, blood pressure 135/73, pulse 91% 3 L. GENERAL APPEARANCE: Well built, BMI 32.7, sitting up, slightly short of breath. EYES: Pupils equal. Conjunctivae normal. HEENT: External appearance of nose and ears normal. Oral cavity normal. NECK: JVD not raised. Mass not palpable. Respiratory effort normal. LUNGS: Decreased breath sounds. CARDIOVASCULAR: 1st and 2nd sounds. No edema. ABDOMEN: Soft, nontender. Liver and spleen not palpable. LYMPHATICS: No lymph node palpable in the neck or axilla. PSYCHIATRY: Alert, oriented x3. Mood and affect normal. NEUROLOGIC: Pupils equal. Cranial nerves grossly intact. Power and sensation grossly intact. INVESTIGATIONS: The patient had a 2-D echocardiogram in October of last year that showed a preserved LV function with no evidence of right ventricular strain. Did have a bronchoscopy on 11/13/[address] Elliott, it just came back showing some mild inflammation. Cytology was done, all come back looking benign. The patient did have a CT scan of the chest on October 31, showed subsegmental basilar consolidation. There was some elevation of hemidiaphragms and possible reduced inspiration. ASSESSMENT: 1. Chronic hypoxic respiratory failure after pulmonary insult back in September. The patient presented with acute shortness of breath, fever, at that time was diagnosed with a strep throat and possible pneumonia. Subsequently patient was treated with steroids for bronchiolitis obliterans organizing pneumonia (BOOP) but never really had the symptoms improve. Given that this is an acute presentation, of course infectious cause is important. Now it has been a while. Interstitial lung disease per se, clinically this is not within the diagnosis at least at the present time and patient did not respond to the steroids. 2. Obesity, BMI over 30. 3. Essential hypertension. 4. Hyperlipidemia. 5. Anemia. 6. Status post VATS procedure for lung biopsy. 7. Hyperkalemia, patient is on JORGE inhibitor. PLAN: I had a lengthy discussion with Dr. Juares. The patient is currently on DuoNeb, Lipitor, prednisone. Given that the patient also was hyperkalemic, hence, I have held off the Zestoretic and given the patient Kayexalate. If the patient does not improve, the patient may need a tertiary center for further workup. At this point, will let Pulmonary drive further diagnostic workup. Thank you, Dr. Rodriguez. MARY / SHEILA: [id number] /
[2017-04-24] MEDS: MORPHINE ORAL SOLN 10 MG/5 ML CUP PO PRN (21:07)
[2017-04-25 01:17] LABS: Hepatitis C IgG Antibody Non-Reactive (Non-Reactive)
[2017-04-25] MEDS: MORPHINE ORAL SOLN 10 MG/5 ML CUP PO PRN (02:53)
[2017-04-25] MEDS: KETOROLAC 30 MG/ML 1 ML VIAL IVP SCH ×4 (05:21→23:33)
--- NOTE | 2017-04-25 06:33 | XR ---
EXAMINATION TYPE: XR chest 2V DATE OF EXAM: 04/25/2017 HISTORY: post vats. REFERENCE: Previous study dated 04/24/2017. FINDINGS: The patient's left pleural drain remains in place, unchanged in appearance. No definite pne umothorax is identified. The patient has taken a poor inspiration. There is atelectatic change at both lung bases. This is min imal. Pleural spaces appear clear. The heart is not enlarged. IMPRESSION: MINIMAL BIBASILAR ATELECTASIS.
[2017-04-25 06:37] LABS: Basophils # (A) 0.1 k/uL (0-0.2); Basophils % (A) 1 %; Eosinophils # (A) 0.2 k/uL (0-0.7); Eosinophils % (A) 2 %; HCT 42.7 % (39.0-53.0); HGB 14.4 gm/dL (13.0-17.5); Lymphocytes # (A) 1.5 k/uL (1.0-4.8); Lymphocytes % (A) 15 %; MCH 30.2 pg (25.0-35.0); MCHC 33.7 g/dL (31.0-37.0); MCV 89.6 fL (80.0-100.0); Mean Platelet Volume 7.4; Monocytes # (A) 0.8 k/uL (0-1.0); Monocytes % (A) 8 %; Neutrophils # (A) 7.3 k/uL (1.3-7.7); Neutrophils % (A) 71 %; Platelet Count 198 k/uL (150-450); RBC 4.77 m/uL (4.30-5.90); RDW 13.4 % (11.5-15.5); WBC 10.2 k/uL (3.8-10.6)
[2017-04-25 06:50] LABS: ALT 46 U/L (21-72); AST 22 U/L (17-59); Albumin 3.8 g/dL (3.5-5.0); Alkaline Phosphatase 50 U/L (38-126); Anion Gap 8 mmol/L; Blood Urea Nitrogen 14 mg/dL (9-20); Calcium 9.3 mg/dL (8.4-10.2); Carbon Dioxide 36 mmol/L (22-30); Chloride 90 mmol/L (98-107); Glucose 114 mg/dL (74-99); Potassium 4.1 mmol/L (3.5-5.1); Sodium 134 mmol/L (137-145); Total Bilirubin 0.9 mg/dL (0.2-1.3); Total Protein 6.4 g/dL (6.3-8.2)
[2017-04-25] MEDS: predniSONE 10 MG TAB PO SCH (08:10)
[2017-04-25] MEDS: HEPARIN SODIUM,PORCINE 5,000 UNIT/ML 1 ML VIAL SQ SCH ×3 (08:10→22:47)
[2017-04-25] MEDS: ATORVASTATIN 10 MG TAB PO SCH (08:10)
[2017-04-25] MEDS: traMADol 50 MG TAB PO SCH ×4 (08:12→22:47)
[2017-04-25] MEDS: IPRATROPIUM-ALBUTEROL 3 ML NEB IH SCH ×4 (08:20→18:58)
[2017-04-25] MEDS: LISINOPRIL-HCTZ 20-25 MG 1 EACH TAB PO SCH (10:07)
--- NOTE | 2017-04-25 11:23 | P.PN ---
Subjective Patient is a pleasant 57-year-old gentleman admitted for VATS procedure has a pulmonary diagnosis of BOOP HI awaiting biopsy results. Patient is on high- dose systemic steroids shortness of breath is at his baseline. Patient does have mild sinus tachycardia. Mildly hyponatremic may require IV fluids. Patient is on room air at this time. Constitutional: Denied any fatigue denied any fever. Cardio vascular: denied any chest pain, palpitations Gastrointestinal denied any nausea vomiting Pulmonary: Does have some baseline shortness of breath no cough Neurologic denied any new focal deficits Objective - Vital Signs Vital signs: Vital Signs Temp 98.3 F 04/25/17 08:00 Pulse 101 H 04/25/17 08:31 Resp 19 04/25/17 08:00 BP 150/78 04/25/17 08:00 Pulse Ox 94 L 04/25/17 08:00 Intake & Output 04/24/17 04/25/17 04/25/17 18:59 06:59 18:59 Intake Total 1502 Output Total 1100 960 0 Balance 402 -960 0 Weight 96.5 kg Intake: IV 20 Invasive Line 2 20 Oral 1482 Output: Chest Tube Drainage 20 20 0 Chest Tube Left Lateral 20 20 0 Chest Urine 1080 940 Emesis 0 Other: Voiding Method Toilet Toilet Urinal # Voids 2 1 # Bowel Movements 0 # Emeses 0 - Exam PHYSICAL EXAMINATION: GENERAL: The patient is alert and oriented x3, not in any acute distress. Well developed, well nourished. HEENT: Pupils are round and equally reacting to light. EOMI. No scleral icterus. No conjunctival pallor. Normocephalic, atraumatic. No pharyngeal erythema. No thyromegaly. CARDIOVASCULAR: S1 and S2 present. No murmurs, rubs, or gallops. Mildly tachycardic PULMONARY: Chest is clear to auscultation, no wheezing or crackles. ABDOMEN: Soft, nontender, nondistended, normoactive bowel sounds. No palpable organomegaly. MUSCULOSKELETAL: No joint swelling or deformity. EXTREMITIES: No cyanosis, clubbing, or pedal edema. NEUROLOGICAL: Gross neurological examination did not reveal any focal deficits. SKIN: No rashes. - Labs CBC & Chem 7: 04/25/17 06:02 04/25/17 06:02 Labs: Abnormal Lab Results - Last 24 Hours (Table) 04/25/17 Range/Units 06:02 Sodium 134 L (137-145) mmol/L Chloride 90 L (98-107) mmol/L Carbon Dioxide 36 H (22-30) mmol/L Glucose 114 H (74-99) mg/dL Microbiology - Last 24 Hours (Table) 04/23/17 08:54 Gram Stain - Preliminary Lung - Left Lower Lobe Tissue Culture - Preliminary 04/23/17 08:54 Gram Stain - Preliminary Lung - Left Upper Lobe Tissue Culture - Preliminary Assessment and Plan Plan: -Status post VATS procedure and respiratory failure post procedure which improved now is on systemic strides -boop: Patient is on systemic steroids. -Hyponatremia probably due to hypovolemia, will discuss with cardiothoracic surgery regarding IV fluids recommended gentle hydration. -Tachycardia: Due to hypovolemia most probably.
--- NOTE | 2017-04-25 11:29 | P.PN ---
Subjective Progress Note Date: 04/25/17 Principal diagnosis: Interstitial lung disease. Previous medical history of hypertension, sepsis with Streptococcus. POD #2 left upper lobe and left lower lobe video-assisted thoracoscopic lung biopsy. Patient currently sitting up in bed in no acute distress. States his pain is well-controlled. Patient is anxious to have his chest tube removed and would like to go home as soon as possible. Objective - Vital Signs Vital signs: Vital Signs Temp 97.6 F 04/25/17 11:18 Pulse 96 04/25/17 11:18 Resp 18 04/25/17 11:18 BP 155/90 04/25/17 11:18 Pulse Ox 92 L 04/25/17 11:18 Intake & Output 04/24/17 04/25/17 04/25/17 18:59 06:59 18:59 Intake Total 1502 Output Total 1100 960 0 Balance 402 -960 0 Weight 96.5 kg Intake: IV 20 Invasive Line 2 20 Oral 1482 Output: Chest Tube Drainage 20 20 0 Chest Tube Left Lateral 20 20 0 Chest Urine 1080 940 Emesis 0 Other: Voiding Method Toilet Toilet Urinal # Voids 2 1 # Bowel Movements 0 # Emeses 0 - Constitutional General appearance: Present: cooperative, no acute distress - Respiratory Details: Lungs sounds diminished bilaterally, especially in the left base. Respirations even, nonlabored. Currently on room air with oxygen saturation 92-94%. Only able to achieve 750 mL on his incentive spirometry. Left pleural chest tube was to waterseal for 24 hours, no drainage overnight, 70 mL thin serous drainage in 24 hours without air leak. Chest tube was discontinued this morning without incident. - Cardiovascular Details: S1, S2 present. Regular rate, sinus rhythm on telemetry. Palpable peripheral pulses bilaterally. No edema present. No calf pain or tenderness noted. SCDs present. - Gastrointestinal Gastrointestinal Comment(s): Abdomen soft, nontender, nondistended. Active bowel sounds 4 quadrants. Tolerating diet. - Genitourinary Genitourinary Comment(s): Continues to void clear, yellow urine. - Integumentary Integumentary Comment(s): Skin is warm and dry with evidence of good perfusion. Left lateral chest incisions well approximated and covered with dry intact dressing. - Neurologic Neurologic: Present: CNII-XII intact - Musculoskeletal Musculoskeletal: Present: gait normal, strength equal bilaterally - Psychiatric Psychiatric: Present: A&O x's 3, appropriate affect, intact judgment & insight - Allied health notes Allied health notes reviewed: nursing - Labs CBC & Chem 7: 04/25/17 06:02 04/25/17 06:02 Labs: Abnormal Lab Results - Last 24 Hours (Table) 04/25/17 Range/Units 06:02 Sodium 134 L (137-145) mmol/L Chloride 90 L (98-107) mmol/L Carbon Dioxide 36 H (22-30) mmol/L Glucose 114 H (74-99) mg/dL Microbiology - Last 24 Hours (Table) 04/23/17 08:54 Gram Stain - Preliminary Lung - Left Lower Lobe Tissue Culture - Preliminary 04/23/17 08:54 Gram Stain - Preliminary Lung - Left Upper Lobe Tissue Culture - Preliminary - Imaging and Cardiology Chest x-ray: report reviewed, image reviewed Assessment and Plan (1) Interstitial lung disease Current Visit: Yes Status: Chronic Code(s): J84.9 - INTERSTITIAL PULMONARY DISEASE, UNSPECIFIED SNOMED Code(s): 978648283 (2) Hypertension Current Visit: Yes Status: Chronic Code(s): I10 - ESSENTIAL (PRIMARY) HYPERTENSION SNOMED Code(s): 91939670 Plan: 1. Left pleural chest tube was discontinued this morning. Will check x-ray in the morning. 2. Encourage incentive spirometry 10 times every hour. 3. Pain management with ordered medications. 4. Increase activity, ambulate in hallway. 5. Will monitor daily labs and x-rays. 6. More recommendations to follow. Anticipate discharge to home tomorrow. Time with Patient: Greater than 30
--- NOTE | 2017-04-25 11:42 | P.PN ---
Subjective Progress Note Date: 04/25/17 Principal diagnosis: Status post VATS lung biopsy, postoperative day #2 This is a 57-year-old white male with history of chronic shortness of breath going back to October of 2016. His shortness of breath developed around the time he developed a strep throat, admitted to the hospital in [place], treated with antibiotics and diuretics, and eventually he was discharged home diagnosed according to him with streptococcal sepsis. Patient did not require any intubation or mechanical ventilation, but apparently he was quite ill at the time because of his strep throat infection. Since then the patient developed extreme shortness of breath, and has been doctoring with Dr. Elliott since 2016. Workup was done by Dr. Rajinder Elliott, revealed evidence of restrictive lung disease, and his FVC is in the range of 30%. Patient did not require any oxygen , he underwent a bronchoscopy and transbronchial biopsy which I reviewed and clearly was nondiagnostic. Apparently Dr. 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 Patient was tried on prednisone, but no relief whatsoever. Tried on bronchodilators again no relief. In spite of his shortness of breath, the patient did not require to be on home oxygen. His CT of the chest showed nonspecific findings hence the patient was advised to undergo thoracoscopic lung biopsy which was done today. Grossly his specimen was normal according to the surgeon, final pathology report is pending. Patient was transferred to a monitor bed on selective after his surgery today, and I was asked to see him on consultation. After reviewing the clinical history and reviewing his x-rays, CT of the chest, previous bronchoscopic findings, PFT, I felt strongly that this is more of a restrictive pathology most likely related to muscle weakness. Patient may eventually need workup for muscle weakness evaluation including a sniff test, and other blood testing looking into possibility of muscle weakness causing his symptoms of shortness of breath. Patient cannot lay flat, he cannot lay on the left side, and x-rays in the past have shown the left hemidiaphragm to be dismissed to be all was higher than the right hemidiaphragm. X-rays have also shown atelectatic changes at the bases bilaterally, and the chest x-ray this morning after his surgery is showing significant hypoventilatory status with atelectasis in the right lower lobe and left lower lobe. Hence I recommended an ABG, and I will give the patient a trial of BiPAP. Reevaluated today, patient is doing relatively well, continues to have shortness of breath, felt better when he slept last night with a BiPAP at IPAP of 12 and EPAP 4. His ABG reflected chronic hypoxia and chronic hypercapnia which again points to possible hypoventilation secondary to muscle weakness. Initiated some laboratory diagnostic workup yesterday, results of which are pending. CPK is slightly elevated, felt to be nonsignificant, C-reactive protein is elevated. 15.8. CBC is relatively normal. ABG showed a pO2 of 68 pCO2 of 64 pH of 7.31 and this is on 32% FiO2. Reevaluated today on 04/25/2017, patient is doing well, felt great on BiPAP overnight, however when he wakes up in the morning and he takes BiPAP off he feels very short of breath. It takes him a while to adjust off BiPAP. But while on it he feels great. And that is not surprising considering the patient has what seems to be a hypoxic and hypercapnic respiratory failure. Presently off oxygen on room air, sitting in bed, in no distress. All his labs were reviewed. Chest x-ray showed minimal bibasilar atelectasis. Objective - Vital Signs Vital signs: Vital Signs Temp 97.6 F 04/25/17 11:18 Pulse 96 04/25/17 11:18 Resp 18 04/25/17 11:18 BP 155/90 04/25/17 11:18 Pulse Ox 92 L 04/25/17 11:18 Intake & Output 04/24/17 04/25/17 04/25/17 18:59 06:59 18:59 Intake Total 1502 Output Total 1100 960 0 Balance 402 -960 0 Weight 96.5 kg Intake: IV 20 Invasive Line 2 20 Oral 1482 Output: Chest Tube Drainage 20 20 0 Chest Tube Left Lateral 20 20 0 Chest Urine 1080 940 Emesis 0 Other: Voiding Method Toilet Toilet Urinal # Voids 2 1 # Bowel Movements 0 # Emeses 0 - Exam Physical Exam: Revealed a 57-year-old in no distress, Head: Cushingoid, atraumatic, normocephalic. HEENT:[Neck is supple.] [No neck masses.] [No thyromegaly.] [No JVD.] Chest: [Extremely diminished breath sounds at the bases, no crackles or rhonchi or wheezes Cardiac Exam: [Normal S1 and S2, no S3 gallop, no murmur.] Abdomen: [Soft, nontender, no megaly, no rebound, no guarding, normal bowel sounds.] Extremities: [No clubbing, no edema, no cyanosis.] Neurological Exam: [No focal neurologic deficit.] Psychiatric: Normal mood affect and mental status examination. Lymphatics: No lymphadenopathy - Labs CBC & Chem 7: 04/25/17 06:02 04/25/17 06:02 Labs: Abnormal Lab Results - Last 24 Hours (Table) 04/25/17 Range/Units 06:02 Sodium 134 L (137-145) mmol/L Chloride 90 L (98-107) mmol/L Carbon Dioxide 36 H (22-30) mmol/L Glucose 114 H (74-99) mg/dL Microbiology - Last 24 Hours (Table) 04/23/17 08:54 Gram Stain - Preliminary Lung - Left Lower Lobe Tissue Culture - Preliminary 04/23/17 08:54 Gram Stain - Preliminary Lung - Left Upper Lobe Tissue Culture - Preliminary Assessment and Plan Assessment: Impression: 1 Status post thoracoscopic lung biopsy/VATS, postoperative day #2 2 chronic shortness of breath, nonspecific CT chest findings, 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 Otherwise the patient would have responded well to prednisone. 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 Patient was advised to have further follow up with Dr. Elliott on outpatient basis, and further diagnostic workup may be necessary, hopefully by then we have a full answer on his lung biopsy. Patient is scheduled to be discharged home tomorrow. In the meantime continue incentive spirometry, continue BiPAP at bedside as needed. Time with Patient: Less than 30
[2017-04-25] MEDS: SODIUM CHLORIDE 0.9% 1,000 ML IV SCH ×2 (12:29→21:10)
[2017-04-26] MEDS: KETOROLAC 30 MG/ML 1 ML VIAL IVP SCH (04:02)
[2017-04-26] MEDS: SODIUM CHLORIDE 0.9% 1,000 ML IV SCH (05:38)
--- NOTE | 2017-04-26 06:23 | XR ---
EXAMINATION TYPE: XR chest 2V DATE OF EXAM: 04/26/2017 HISTORY: post VATS. REFERENCE: Previous study dated 04/25/2017. FINDINGS: There is apparent elevation of the right hemidiaphragm. The patient's left pleural drain mixon s been removed. No sizable pneumothorax is identified. The patient has taken a poor inspiration. Ther e is right basilar atelectasis. Heart size is within normal limits. No definite pleural fluid is seen . IMPRESSION: MILD PLATELIKE ATELECTASIS, RIGHT LUNG BASE.
[2017-04-26 06:24] LABS: Glucose,Whole Blood 103 mg/dL (75-99)
[2017-04-26] MEDS: HEPARIN SODIUM,PORCINE 5,000 UNIT/ML 1 ML VIAL SQ SCH (07:44)
[2017-04-26] MEDS: predniSONE 10 MG TAB PO SCH (07:45)
[2017-04-26] MEDS: ATORVASTATIN 10 MG TAB PO SCH (07:45)
[2017-04-26] MEDS: LISINOPRIL-HCTZ 20-25 MG 1 EACH TAB PO SCH (07:45)
[2017-04-26] MEDS: traMADol 50 MG TAB PO SCH (07:47)
[2017-04-26 07:50] VITALS: BP 141/94; PULSE 89; RESP 18; TEMP 98.7
[2017-04-26] MEDS: IPRATROPIUM-ALBUTEROL 3 ML NEB IH SCH (09:10)
--- NOTE | 2017-04-26 10:07 | P.DS ---
Providers Date of admission: 04/23/17 06:08 Expected date of discharge: 04/26/17 Attending physician: Paul Rodriguez Consults: 04/23/17 10:07 Consult Physician Routine Consulting Provider: Yash Elliott Consult Reason/Comments: Pulmonary management Do you want consulting provider notified?: Already Contacted 04/23/17 16:53 Consult Physician Routine Consulting Provider: Paul Rodriguez Consult Reason/Comments: Surgical management Do you want consulting provider notified?: Already Contacted 04/24/17 11:13 Consult Physician Routine Consulting Provider: Aries Null Consult Reason/Comments: medical management Do you want consulting provider notified?: Already Contacted Primary care physician: Camron Hicks - Discharge Diagnosis(es) (1) Interstitial lung disease Status: Chronic (2) Hypertension Status: Chronic Hospital Course: FINAL DIAGNOSIS: 1. Interstitial lung disease 2. Previous medical history of hypertension 3. Previous sepsis with Streptococcus PRINCIPAL PROCEDURE: 1. Left upper lobe and left lower lobe video-assisted thoracoscopic lung biopsy HISTORY OF PRESENT ILLNESS: This 57-year-old gentleman had become ill and septic with streptococcus in September 2016. He had persistent shortness of breath and subsequently saw Dr. Elliott in October. A computed tomography scan was performed in early November demonstrating some areas of ground glass infiltrate as well as bibasilar atelectasis/consolidation of the lung. The patient was treated initially with antibiotics and subsequently with steroids without response and tracheobronchial biopsy was performed which demonstrated peribronchial inflammation. The slides were sent to [facility] with the most likely diagnosis consistent with bronchiolitis obliterans with organizing pneumonia. He had continued on high-dose steroids since November and has had some clinical improvement but still remained significantly short of breath particularly with exertion. His pulmonary function tests continued to be abnormal. Thoracoscopic lung biopsy was requested to confirm the diagnosis of BOOP or possibly establish a different diagnosis. HOSPITAL COURSE: The patient is brought to the hospital on 04/23/2017, taken to the preoperative area, prepared in usual fashion, and subsequently taken to the operating room where Dr. Rodriguez performed a left upper lobe and left lower lobe video-assisted thoracoscopic lung biopsy. Upon completion of surgery the patient was extubated, taken to the recovery room where he was monitored hemodynamically, and was eventually admitted to [address] [place] [address] for further monitoring and rehabilitation. His chest tube was discontinued on postop day #2 , his pain was well controlled on ordered medications, he was tolerating his diet, his oxygen was titrated down, follow-up chest x-ray demonstrated no pneumothorax and no acute process, and he was ready to be discharged home on postop day #3. He received written and verbal instruction regarding his medications, activity restrictions, signs and symptoms requiring physician notification, and follow-up appointments. COMPLICATIONS: The patient experienced no postoperative complications. Plan - Discharge Summary Discharge Rx Participant: Yes New Discharge Prescriptions: New traMADol HCl [Ultram] 50 mg PO QID #90 tab Continue Simvastatin [Zocor] 20 mg PO QAM Lisinopril-Hctz 20-25 mg [Zestoretic 20-25] 1 tab PO QAM predniSONE 20 mg PO DAILY Albuterol Inhaler [Ventolin Hfa Inhaler] 1 puff INHALATION RT-Q6H PRN PRN Reason: Shortness Of Breath Discontinued Naproxen Sod/Diphenhydramine [Aleve Pm Caplet] 1 tab PO HS Discharge Medication List Lisinopril-Hctz 20-25 mg [Zestoretic 20-25] 1 tab PO QAM 11/11/16 [History] Simvastatin [Zocor] 20 mg PO QAM 11/11/16 [History] Albuterol Inhaler [Ventolin Hfa Inhaler] 1 puff INHALATION RT-Q6H PRN 04/17/17 [ History] predniSONE 20 mg PO DAILY 04/17/17 [History] traMADol HCl [Ultram] 50 mg PO QID #90 tab 04/25/17 [Rx] Follow up Appointment(s)/Referral(s): Yash Elliott DO [Doctor of Osteopathic Medicine] - 05/05/17 10:45 am Paul Rodriguez MD [STAFF PHYSICIAN] - 05/22/17 10:30 am Patient Instructions/Handouts: Bronchiolitis (DC), Hypertension (DC), Pulmonary Rehabilitation (DC) Activity/Diet/Wound Care/Special Instructions: DISCHARGE INSTRUCTIONS: 1. No driving for 2 weeks, or until physician gives their ok. 2. The patient should sleep in their own bed, no medical bed needed. 3. Stairs are not an issue. If the bedroom is upstairs, it is advised that the patient go up at night and down in the morning for the first week. Go slowly, using handrail and take 1 step at a time. 4. No lifting, pushing, or pulling more than 10 pounds for 2 weeks. The physician will advise of any restriction changes. 5. The patient is expected to continue the prescribed walking program. 6. Continue pain control per as needed orders. 7. Continue with incentive spirometry until otherwise directed by the physician. 8. May shower daily using liquid antibacterial soap. 9. Routine incision care. No powders, lotions, ointments on incisions. 10. Please call surgeon/MANAGER METROLOGY for temp greater than 101 F or purulent drainage from incisions. Discharge Disposition: HOME SELF-CARE
[2017-04-27 14:29] LABS: Smooth Muscle Antibody 12 UNITS (<20)
[2017-04-27 22:40] LABS: Acetylchol Recept Bind Ab <0.30 nmol/L
== END 2017-04-26 09:39 | disposition home or self-care (01) | DRG 167 ==
LOC: 2ORMAIN 06:08 → 6SEL 11:32
PROVIDERS: ADMIT Surgery; ATTEND Surgery
PROC: 0BBG4ZX Excision of Left Upper Lung Lobe, Percutaneous Endoscopic Approach, Diagnostic (ICD-10-PCS; 2017-04-23)
PROC: 0BBJ4ZX Excision of Left Lower Lung Lobe, Percutaneous Endoscopic Approach, Diagnostic (ICD-10-PCS; principal; 2017-04-23 07:30)
DX: J98.4 Other disorders of lung (principal); J96.11 Chronic respiratory failure with hypoxia; E87.1 Hypo-osmolality and hyponatremia; E87.5 Hyperkalemia; J96.12 Chronic respiratory failure with hypercapnia; J98.11 Atelectasis; I10 Essential (primary) hypertension; D64.9 Anemia, unspecified; E78.5 Hyperlipidemia, unspecified; E86.1 Hypovolemia; R00.0 Tachycardia, unspecified; M62.81 Muscle weakness (generalized); F17.210 Nicotine dependence, cigarettes, uncomplicated; E66.9 Obesity, unspecified; Z68.29 Body mass index [BMI] 29.0-29.9, adult; Z79.1 Long term (current) use of non-steroidal anti-inflammatories (NSAID); Z79.52 Long term (current) use of systemic steroids; Z79.899 Other long term (current) drug therapy; Z88.0 Allergy status to penicillin; Z91.018 Allergy to other foods
CPT/HCPCS: 36600; 71045; 71046; 80048; 80053; 82550; 82805; 83516; 83519; 85025; 86140; 86701; 86704; 86803; 86850; 86900; 86901; 87070; 87075; 87102; 87116; 87205; 87206; 87340; 88307; 88312; 94640; 94660; 94760

== ENCOUNTER → 2017-05-29 | Outpatient (CLI) | payer BC ==
--- NOTE | 2017-05-29 11:23 | FL ---
EXAMINATION TYPE: FL sniff test without CXR DATE OF EXAM: 05/29/2017 COMPARISON: Chest x-ray April 26, 2017 and several older studies. Chest CT October 31, 2016 HISTORY: Dyspnea and cough. History of prior bronchoscopy and lung biopsy TECHNIQUE: Fluoroscopic sniff test. A total of 36 images are saved to PACS station during procedure. Roughly 1 minute of fluoroscopic time was utilized. FINDINGS: Fluoroscopic sniff test was performed by myself. There is overall low lung volumes. There is symmetric movement of both diaphragms in appropriate direction. There is however limited upward an d downward vertical movement bilaterally, but this however is most likely product of patient's inabil ity to take deeper breaths and exhale deeply. This should be correlated with pulmonary function studi es. Slightly more prominent right basilar linear scarring or atelectasis is present during real-time performance of exam versus older studies. IMPRESSION: As Above.
== END ==
LOC: RADFLMAIN 10:20
PROVIDERS: ATTEND Internal Medicine Critical Care Medicine
DX: R06.00 Dyspnea, unspecified (principal)
CPT/HCPCS: 76000

== ENCOUNTER → 2018-08-18 | Outpatient (CLI) | payer OTHER ==
--- NOTE | 2018-08-18 13:09 | CT ---
EXAMINATION TYPE: CT ankle RT wo con DATE OF EXAM: 08/18/2018 COMPARISON: None. HISTORY: Pain, displaced bimalleolar fracture with possible posterior malleolar fracture border. CT DLP: 229.5 mGycm Automated exposure control for dose reduction was used. CONTRAST: CT right ankle without contrast. FINDINGS: Overlying cast material is present. There is acute comminuted displaced fracture through th e lateral malleolus with larger cysts distal fragment slightly impacted and laterally and posteriorly displaced up to 6 mm. There is medial periostosis from the proximal fracture fragment. Few tiny frac ture fragments near the oblique oriented fracture line are present posteriorly and medially. Medial malleolus shows tiny chip type fractures appreciated best sagittal images 34 through 36 along anterior aspect. There is comminuted tiny fracture through the posterior malleolus seen best on sagittal images with a few tiny fracture fragments identified. Ankle mortise symmetry is fairly well maintained after casting. No intra-articular loose ossific bodi es are present. There is moderate to severe diffuse subcutaneous edema. Distal Achilles tendon is intact. Normal sinu s tarsi fat is seen. IMPRESSION: Confirmation of trimalleolar fracture as detailed above.
== END | disposition home or self-care (01) ==
LOC: RADCTMAIN 12:44
PROVIDERS: ATTEND Orthopaedic Surgery
DX: S82.841A Displaced bimalleolar fracture of right lower leg, initial encounter for closed fracture (principal); S82.62XA Displaced fracture of lateral malleolus of left fibula, initial encounter for closed fracture; M89.9 Disorder of bone, unspecified; R60.9 Edema, unspecified

== ENCOUNTER 2018-08-25 11:30 | Day surgery (SDC) | payer OTHER ==
[2018-08-24 10:42] VITALS: BMI 28.0
[~2018-08-25 11:30] MED LIST changes: +CLINDAMYCIN 900 MG in DEXTROSE 5% IN WATER 50 ML IVPB ONE; -DEXAMETHASONE SOD PHOSPHATE 10 MG/ML 1 ML VIAL IV ONE; -MORPHINE SULFATE 4 MG/ML SYRINGE IV PRN; -Pre Op ABX Message 1 EACH MISC MISCELLANE ONE
[2018-08-25] MEDS ORDERED: LACTATED RINGERS 1,000 ML IV ONE ×2 (12:05→15:52)
[2018-08-25] MEDS ORDERED: LIDOCAINE 1% 20 ML VIAL (10MG/ML) FOR IV START INTRADERMA ONE (12:05)
[2018-08-25] MEDS ORDERED: ONDANSETRON 4 MG/2 ML VIAL IVP ONE (12:21)
[2018-08-25] MEDS ORDERED: DEXAMETHASONE SOD PHOSPHATE 10 MG/ML 1 ML VIAL IV ONE (12:21)
[2018-08-25 12:22] LABS: HCT 45.5 % (39.0-53.0); HGB 15.3 gm/dL (13.0-17.5); MCH 29.7 pg (25.0-35.0); MCHC 33.7 g/dL (31.0-37.0); Mean Platelet Volume 7.9; Platelet Count 234 k/uL (150-450); RBC 5.16 m/uL (4.30-5.90); RDW 15.3 % (11.5-15.5); WBC 7.6 k/uL (3.8-10.6)
[2018-08-25 12:27] LABS: African American GFR (CKD) >90 (>60 ml/min/1.73 sqM); Anion Gap 9 mmol/L; Blood Urea Nitrogen 13 mg/dL (9-20); Calcium 9.9 mg/dL (8.4-10.2); Carbon Dioxide 27 mmol/L (22-30); Chloride 106 mmol/L (98-107); Glucose 101 mg/dL (74-99); Potassium 4.4 mmol/L (3.5-5.1); Sodium 142 mmol/L (137-145)
[2018-08-25] MEDS ORDERED: MIDAZOLAM (PF) 2 MG/2 ML VIAL IV ONE (13:32)
[2018-08-25] MEDS ORDERED: fentaNYL (PF) 50 MCG/ML 2 ML AMP IV ONE (13:32)
[2018-08-25] MEDS ORDERED: LIDOCAINE 1% INJ 10MG/ML (20 ML MDV) ONE (14:41)
[2018-08-25] MEDS ORDERED: DEXAMETHASONE SOD PHOSPHATE 4 MG/ML 1 ML VIAL ONE (14:41)
[2018-08-25] MEDS ORDERED: PROPOFOL 10 MG/ML 20 ML VIAL IV ONE (14:41)
[2018-08-25] MEDS ORDERED: MIDAZOLAM 2 MG/2 ML VIAL ONE (14:41)
[2018-08-25] MEDS ORDERED: ROPIVACAINE 5 MG/ML 30 ML VIAL ONE (14:41)
--- NOTE | 2018-08-25 15:39 | P.ANPRN ---
Procedure Note - Anesthesia - Nerve Block Performed Right Adductor Canal Single Time Out Performed: Yes Date of Procedure: 08/25/18 Procedure Start Time: Procedure Stop Time: :45 Location of Patient Procedure: PreOp Indication: Acute Post-Operative Pain, Requested by physician Sedation Type: Sedate with meaningful contact maintained Preparation: Sterile Prep Position: Sitting Catheter: None Needle Types: Pajunk Needle Gauge: 21 Technique: Ultrasound Injectate: 0.5% Ropivacaine (see comment for volume) (10 ml + 2mg dexamethasone) Blood Aspirated: No Pain Paresthesia on Injection Noted: No Resistance on Injection: Normal Events: Uneventful and Well Tolerated Right Popliteal Single Time Out Performed: Yes Date of Procedure: 08/25/18 Procedure Start Time: Procedure Stop Time: :45 Location of Patient Procedure: PreOp Indication: Acute Post-Operative Pain, Requested by physician Sedation Type: Sedate with meaningful contact maintained Preparation: Sterile Prep Position: Sitting Catheter: None Needle Types: Pajunk Needle Gauge: 21 Technique: Ultrasound Injectate: 0.5% Ropivacaine (see comment for volume) (20 ml + 2mg dexamethasone) Blood Aspirated: No Pain Paresthesia on Injection Noted: No Resistance on Injection: Normal Events: Uneventful and Well Tolerated
--- NOTE | 2018-08-25 16:29 | FL ---
Fluoroscopy History: ORIF R ankle ORIF R ankle, 30sec fl time . Postoperative alignment appears near anatomic.
--- NOTE | 2018-08-25 16:33 | P.OP ---
Date of Procedure: 08/25/18 Preoperative Diagnosis: Right unstable bimalleolar ankle fracture equivalent Postoperative Diagnosis: Right unstable bimalleolar equivalent ankle fracture and syndesmotic instability Procedure(s) Performed: 1. Open reduction and internal fixation right lateral malleolus 2. Open reduction and internal fixation right syndesmosis 3. Manual application of joint stress by physician for radiography, right ankle 4. Application of short leg splint by physician, right ankle Anesthesia: GARY, regional Surgeon: Luis Hurley Vendor Manager #1: Idania Puga Estimated Blood Loss (ml): 10 IV fluids (ml): 750 Pathology: none sent Condition: stable Disposition: PACU Indications for Procedure: The patient is very pleasant 58-year-old male who presented to my office last week with an unstable bimalleolar equivalent ankle fracture. He underwent closed reduction and splinting in the office. There is significant heterotopic bone the syndesmosis so he was sent for a computed tomography scan. I met with the patient and his earlier this week to discuss treatment. We discussed that since his ankle fracture is grossly unstable he will require operative stabilization. We discussed potential risks and complications of surgery including but not limited to risk of anesthesia, superficial infection, deep infection, delayed wound healing, superficial wound necrosis, damage to local blood vessels or nerves, nonunion the fracture site, malunion of the fracture site, malreduction of the ankle mortise, postoperative hardware failure, post traumatic arthritis, DVT, PE, other medical complications, symptomatically hardware, and possibly loss of life or limb. The patient and his voiced understanding of these complications and provided their consent to go forward with surgery. Description of Procedure: The patient is a and prepped holding and the correct right ankle was marked with my initials. I reviewed the consent form with the patient and his . All their questions were answered. He was given a popliteal and saphenous nerve block by anesthesia. The patient was then brought back to the operating room by anesthesia. He was positioned on the OR table where a general anesthetic was given. This point was removed and the skin was found to have wrinkling diffusely throughout the ankle. All bony prominences were well-padded. A tourniquet was applied around the proximal aspect of the right leg. A bump was placed under the right buttock to facilitate imaging. A timeout was then performed identifying the correct patient, operative extremity, and procedure. A stress x-ray was then performed and showed lateral subluxation of the talus out of the ankle mortise. I interpreted this as an unstable construct requiring operative fixation. The right leg was then prepped and draped in the standard sterile fashion. Leg was elevated, exsanguinated with an Esmarch bandage, and the tourniquet was inflated to 250 mmHg. A longitudinal incision was marked out over the lateral malleolus. Skin incision was made with a scalpel. Dissection was carried down carefully to the subcutaneous tissue with tenotomy scissors. The fracture site was identified and carefully debrided. There was a long posterior butterfly fragment and a standard oblique distal fibula fracture. The distal oblique fibula fracture was pulled out to length and gently clamped area the reduction was verified with fluoroscopy. An anterior to posterior lag screw was placed across the fracture using a 2.7 mm drill bit to create a gliding hole and a 2.0 mm drill bit to create a threaded hole. A fully threaded 2.7 mm screw was placed across the fracture generating excellent compression. The distal fibular locking plate was then contoured over the lateral aspect of the distal fibula. 3 nonlocking 2.5 mm screws were placed proximal to the fracture. A nonlocking 3.5 mm screw was placed distal to the fracture bringing the plate down to bone. An additional 4 locking 3.5 mm screws were placed in the distal cluster holes. A manual external rotation stress x-ray was performed and showed persistent widening of the medial clear space. I interpreted this as an unstable syndesmosis and deltoid ligament requiring syndesmotic fixation. The patient had significant heterotopic bone and the syndesmosis. The syndesmotic screw was placed more distal due to this heterotopic bone. A 9 inch Bhakta reduction clamp was placed across the ankle nicely holding the talus and the mortise. A fully threaded, solid 4.0 mm syndesmotic screw was placed just above the level of the plafond, again due to the syndesmosis. Another manual external rotation stress x-ray showed no widening of the medial clear space or incisura. I interpreted this as a stable ankle construct. The wound was then copiously irrigated and closed in layers. A sterile dressing was applied. A well-padded bulky Berrios splint was placed with the ankle in neutral. The patient was awoken from his anesthetic and transferred to a gurney, and brought to recovery having to the procedure well. Idania Puga PA-C was required as a skilled banking assistant for patient positioning, surgical exposure, retraction, placement of hardware, closure of wound, and application of splint. Plan: The patient is going to be discharged home as an outpatient. He is to remain strictly nonweightbearing on his lower extremity. He is to take aspirin for DVT prophylaxis. He'll follow-up in 2 weeks for splint removal, wound check, and nonweightbearing x-rays of the ankle.
[2018-08-25 16:59] VITALS: TEMP 97.5
[2018-08-25 17:03] VITALS: RESP 16
[2018-08-25 17:49] VITALS: BP 116/69; PULSE 78
== END 2018-08-25 18:04 | disposition home or self-care (01) ==
LOC: OR 11:30
PROVIDERS: ATTEND Orthopaedic Surgery
DX: S82.841A Displaced bimalleolar fracture of right lower leg, initial encounter for closed fracture (principal); W18.09XA Striking against other object with subsequent fall, initial encounter; I10 Essential (primary) hypertension; E78.5 Hyperlipidemia, unspecified; R06.00 Dyspnea, unspecified; Z88.0 Allergy status to penicillin; Z91.040 Latex allergy status; Z79.899 Other long term (current) drug therapy; Z98.890 Other specified postprocedural states; Z82.49 Family history of ischemic heart disease and other diseases of the circulatory system
CPT/HCPCS: 64445; 80048; 85027; 73600; 27814; C1713; J2250 ×2; J1100 ×2; J2405; J2001; J3010; J2795; J2704

== ENCOUNTER → 2023-12-07 | Outpatient (CLI) | payer OTHER ==
--- NOTE | 2023-12-09 11:55 | MR ---
EXAMINATION TYPE: MR cspine/tspine wo con DATE OF EXAM: 12/07/2023 6:00 PM COMPARISON: . CLINICAL INDICATION: Male, 63 years old with history of R29.2ABN REFLEX;M47.23 spondylosis cervical r egion; PHH, R29.2ABN REFLEX ;M47.23 spondylosis cervical region, Diziness and off balance TECHNIQUE: Multi planar, multi sequence imaging was performed utilizing: T1-weighted, T2-weighted, a nd turbo inversion recovery imaging of the cervical and thoracic spine. MR contrast: IV Contrast: cc , None. FINDINGS: CERVICAL: Motion limited exam of the spine. Alignment: The cervical vertebral bodies have preserved heights. Alignment is within normal limits [facility] patient positioning. Bones: Bone signal is within normal limits. No abnormal bone marrow edema on inversion recovery seque nces. Multilevel degeneration changes throughout the spine with osteophyte formation of facet arthrop athy. T5 vertebral body height T1/high T2 signal probable vertebral body hemangioma. Cord: Tiny amount of fluid in the spinal cord extending throughout the spine extending from inferior endplate of T2 to the inferior plate of T9. The spinal cord is unremarkable with regards to their sig nal intensity and morphology. Discs: Multilevel disc desiccation is present. C2-C3: No significant disc pathology. The spinal canal is patent. No neural foraminal stenosis. C3-C4: No significant disc pathology. The spinal canal is patent. Bilateral facet and uncovertebral joint arthropathy are present with mild bilateral neural foraminal stenosis. C4-C5: No significant disc pathology. The spinal canal is patent. Bilateral facet and uncovertebral joint arthropathy are present with moderate bilateral neural foraminal stenosis. C5-C6: No significant disc pathology. The spinal canal is patent. Bilateral facet and uncovertebral joint arthropathy are present with moderate bilateral neural foraminal stenosis. C6-C7: No significant disc pathology. The spinal canal is patent. Bilateral facet and uncovertebral joint arthropathy are present with moderate bilateral neural foraminal stenosis. C7-T1: No significant disc pathology. The spinal canal is patent. No neural foraminal stenosis. THORACIC: No evidence significant spinal canal or neural foraminal stenosis. Spinal cord is within no rmal limits Other: None. IMPRESSION: Motion limited exam. 1. No definitive evidence of disc herniation or significant spinal canal stenosis. 2. Prominence of the central cord with canal with fluid signal extending from T2 to T9 correlate for syrinx. 3. Mild disc degeneration with associated osteoarthritic changes. No evidence for significant neural foraminal stenosis. [facility], , 12/09/2023 11:52 AM
== END | disposition home or self-care (01) ==
LOC: RADMRIMAIN 16:51
PROVIDERS: ATTEND Psychiatry & Neurology Neurology
CPT/HCPCS: 72141; 72146